=== PATIENT | male | born 1945 | race Caucasian/White ===

== ENCOUNTER 2024-11-01 06:33 | Outpatient (CLI) | payer MEDICARE, BC, SELFPAY ==
[2024-11-01 06:55] VITALS: BP 186/93; PULSE 86; RESP 16; TEMP 36.6; O2SAT 98
--- NOTE | 2024-11-01 07:29 | PM.ORPRC ---
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 COMPLICATIONS: None. SPECIMENS: None. DRAINS: None. PREOPERATIVE ANTIBIOTICS: None INDICATIONS: The patient is a 79-year-old with a history of right hip pain secondary to the above diagnoses. Despite appropriate non operative management, they continue to have symptoms. Operative intervention was recommended. The risks, benefits and expected outcomes were discussed in detail. These included but were not limited to: Infection, bleeding, injury to blood vessel or nerve, venous thromboembolism. All questions were answered to their satisfaction. PROCEDURE: The patient was placed in the lateral decubitus position. The right hip was imaged in the long and short axes with the ultrasound transducer. Normal acoustic landmarks were identified. We then sterilely prepped and draped the skin, and used a sterile probe cover with sterile gel. Local anesthesia was established with 10 mL of a solution containing 2 % lidocaine without epinephrine, 0.5% Marcaine without epinephrine and sodium bicarbonate. An 11 blade was used to incise the skin. The Tenex TX 2 micro tip was used to treat the abductor tendon for a total of 3 minutes and 51 seconds. The incision was Steri-Stripped closed. A dry dressing was applied. Sponge and needle counts were correct x2. The patient tolerated the procedure well. There were no apparent complications. They were discharged to home in satisfactory condition. PLAN: The patient may weightbear as tolerates. Ice, Tylenol and ibuprofen can be used for discomfort. They may ramp up activity as the hip will allow. They will follow up in the office in 6 weeks to assess their progress.
[2024-11-01 07:33] VITALS: BP 175/80; PULSE 79; RESP 16; TEMP 36.8; O2SAT 98
== END 2024-11-01 07:46 | disposition home or self-care (01) ==
PROVIDERS: PCP Family Medicine; Visit Provider Orthopaedic Surgery
DX: M70.61 Trochanteric bursitis, right hip (principal)
CPT/HCPCS: 27006; 76942; J0665